=== PATIENT | male | born 1965 | race Caucasian/White ===

== ENCOUNTER 2018-07-10 01:41 | Inpatient (IN) | payer OTHER ==
[~2018-07-10] VITALS: Ht 175.3 cm; Wt 68.0 kg
--- NOTE | ~2018-07-10 | OP ---
[address] [address] OPERATIVE REPORT Name: SAMMIE SMALL Room: [address] M.R.#: [id number] Admission: 07/10/18 Attend Phys: Messi Steen Discharge: Date of : 61 Report #: [id number] THIS REPORT FOR: //name// CC: Marcelino Mcgowan [facility] physician/PCP SURGEON: Marcelino Mcgowan MD. PREOPERATIVE DIAGNOSIS: Penile constriction ring strangulation. POSTOPERATIVE DIAGNOSIS: Penile constriction ring strangulation. PROCEDURE: Removal of penile constriction ring. INDICATIONS: This is a 52-year-old white male who states approximately 5 hours to presenting before to the Emergency Room, he placed a constriction ring on his penis, unable to get it off. It is a metal ring, every time we move the penis, he screams in pain, it is swollen and cannot be removed. I recommended surgical removal of this ring and that he will have to have an anesthetic to do that. He agreed to the procedure. He understands the risks involved with this. He understands that he may lose the penis secondary to ischemia or have urethral stricture or other problems related to this including sepsis type picture from ischemic material leaving the penis. He understands these risks and wishes to proceed. DESCRIPTION OF PROCEDURE: Informed consent was obtained. The patient was taken to the operating room. He was sterilely prepped and draped. He was given 2 grams of Ancef. I was able to insinuate a metal elevator underneath the ring, but that all that we could get under it. Then I used a dremel drill that I had brought for my own home. We sterilized it the best we could and used a cutting bit and was able to make 2 cuts in the ring. I first made one cut all the way through it, making sure that we did not hit any of the skin with the tool. The second ring, I was unable then to pry the ring off, so we made a second cut on the opposite side and then was able to take the ring off. We did use a little bit of water to cool the ring throughout the process, so I did not have heat injury. There was very little excoriation of the skin. There were a couple of small abrasions, which were then cleaned off and then Neosporin was applied and a sterile dressing. The penis immediately became flaccid and lost its purple color and looks like the penis will probably be salvaged. The patient tolerated the procedure well and was taken to recovery room in good condition. By: [id number] Mcgowan MD /randy
--- NOTE | ~2018-07-10 | H ---
[address] [address] HISTORY AND PHYSICAL Name: STACISAMMIE Thomas Room: [address] .R.#: [id number] Admission: 07/10/18 Attend Phys: Messi Steen Discharge: Date of : 61 Report #: [id number] THIS REPORT FOR: //name// CC: Marcelino Mcgowan [facility] physician/PCP CHIEF COMPLAINT: Retained constriction ring around the penis for 5 hours. HISTORY OF PRESENT ILLNESS: This is a 52-year-old white male who presented to the Emergency Room, who has had 5-hour history after he placed a constriction ring around his penis. He is unable to get it off. He is in quite a bit of pain. I approached him in the Emergency Room and tried to move the penis and manipulated and he screamed in pain, so we took him to the OR and put him to sleep, where we removed the constriction ring. PAST MEDICAL HISTORY: He denies any other health problems. Denies cardiovascular, pulmonary or diabetes. MEDICATIONS: He takes no medications on a regular basis. ALLERGIES: He has no known drug allergies. FAMILY HISTORY: None. SOCIAL HISTORY: He smokes, but does not drink alcohol. PHYSICAL EXAMINATION: LUNGS: Clear. ABDOMEN: Benign without tenderness. GENITOURINARY: The penis is markedly swollen. It is edematous and purple for the most part, the constriction ring is at the base of the penis. Scrotum, testicles are normal. ASSESSMENT: Retained constriction ring. PLAN: We will need to take the patient to the OR for anesthesia and cut the ring off with available instruments. The patient understands there are risks of losing the entire penis, urethral stricture, he could get a septic type syndrome after the ischemic material was released into his bloodstream, and he also may have impotence. He understands these risks and wishes to proceed. By: [id number] Mcgowan MD /nt
[2018-07-10 02:01] VITALS: BP 174/119
--- NOTE | 2018-07-10 02:38 | NUR ---
ATTEMPT X 2 TO USE RING CUTTER TO REMOVE METAL RING, PATIENT C/O PAIN ON ANY ATTEMPT AND METAL OF RING NOT ALLOWING ANY CUTTING.ICE PLACED ON PENIS TO ASSIST WITH DECREASING SWELLING.
[2018-07-10 02:41] LABS: ABSOLUTE BASOPHILS 0.1 thou/uL (0.0-0.2); ABSOLUTE EOSINOPHILS 0.1 thou/uL (0.0-0.7); ABSOLUTE MONOCYTES 0.6 thou/uL (0.0-1.2); ABSOLUTE NEUTROPHILS 7.5 thou/uL (1.6-8.1); BASOPHILS 0.9 %; EOSINOPHILS 0.5 %; HEMATOCRIT 40.7 % (42.0-52.0); HEMOGLOBIN 13.8 gm/dL (14.0-18.0); LYMPHOCYTES 19.6 %; MCH 31.5 pg (26.0-34.0); MCHC 33.8 g/dL (28.0-37.0); MCV 93.2 fL (80.0-100.0); NUCLEATED RBCS 0 /100WBC; PLATELET COUNT* 234 thou/uL (150-400); RBC 4.37 mil/uL (4.50-6.00); RDW-CV 14.2 % (10.5-14.5); WBC 10.3 thou/uL (4.0-11.0)
[2018-07-10 03:17] LABS: CALCIUM 9.6 mg/dL (8.5-10.1); POTASSIUM 3.6 mmol/L (3.5-5.1)
[2018-07-10 03:31] VITALS: BP 174/119
[2018-07-10 05:52] VITALS: BP 165/88
--- NOTE | 2018-07-10 06:02 | NUR ---
PT ARRIVED ON UNIT ABOUT 0540 FROM OR. VITALS STABLE. ICE PACK PLACED ON PENIS. PT HAS NO COMPLAITS AT THIS TIME. ON 23 HOUR OBSERVATION AT THIS TIME. PT IS SLEEPY AND UNABLE TO STAY AWAKE FOR LONG DUE TO MEDICATIONS GIVEN IN OR. FALL PRECAUTIONS IN PLACE. CALL LIGHT WITHIN REACH. WILLC CONTINUE TO MONITOR.
[2018-07-10 08:00] VITALS: BP 96/66
[2018-07-10 10:29] VITALS: BP 96/66
--- NOTE | 2018-07-10 10:52 | NUR ---
PT ALERT AND ORIENTED X 4. PENILE SWELLING. ICE PACK IN USE. IVF DISCONTINUED. PT ABLE TO EAT BREAKFAST AND AMBULATE TO BATHROOM. INDICATES PENILE PAIN AT 4/10. NO PAIN MEDICATIONS GIVEN. ABLE TO VOID-JONATHAN YELLOW URINE WITHOUT DIFFICULTY. IV REMOVED. PRESCRIPTION TO BE CALLED BY DR. FRANCO TO PATIENTS PHARMACY. DISCHARGE INSTUCTIONS GIVEN. PT ABLE TO AMBULATE WITH NURSING STAFF-GAIT STEADY TO TO LEAVE BY PRIVATE CAR WITH PERSONAL BELONGINGS @ 1050.
[2018-07-10 11:07] VITALS: BP 96/66
== END 2018-07-10 10:50 | disposition home or self-care (01) | DRG 605 ==
LOC: M.ERS 01:41 → M.SUR 01:41 → M.TBA-ER 04:33 → M.ORTHSURG 04:54
PROVIDERS: Emergency Medicine; ADMIT Urology
PROC: 0VCSXZZ Extirpation of Matter from Penis, External Approach (ICD-10-PCS; principal; 2018-07-10)
DX: S30.842A External constriction of penis, initial encounter (principal); T19.4XXA Foreign body in penis, initial encounter; X58.XXXA Exposure to other specified factors, initial encounter; Y93.89 Activity, other specified; Y92.89 Other specified places as the place of occurrence of the external cause; Y99.8 Other external cause status